=== PATIENT | female | born 1990 | race Caucasian/White ===

== ENCOUNTER 2020-12-05 00:13 | Emergency (ER) | payer BC, OTHER ==
[~2020-12-05] VITALS: Ht 152.4 cm; Wt 51.0 kg
[2020-12-05] MEDS ORDERED: ONDANSETRON 2MG/ML, 2ML ONE (00:44)
[2020-12-05] MEDS ORDERED: GLUCAGON 1 MG ONE (00:44)
[2020-12-05] MEDS ORDERED: ONDANSETRON 2MG/ML, 2ML IVPush ONE (01:00)
[2020-12-05] MEDS ORDERED: GLUCAGON 1 MG IVPush ONE (01:00)
[2020-12-05] MEDS ORDERED: SODIUM CHLORIDE 0.9% 1,000ML IVBOLUS ONE (01:00)
[2020-12-05] MEDS ORDERED: SODIUM CHLORIDE FLUSH 10ML SYR IVF ONE (01:00)
--- NOTE | 2020-12-05 01:00 | NUR ---
pt ambulated to the room. airway intact, good aeration and oxygenation. pt on cr monitor, call light within reach. piv started and 1liter NS to flow. meds given per EMAR, and pts mom at bedside.
--- NOTE | 2020-12-05 01:37 | NUR ---
pt calm awake and oriented x4. pts mom at bedside. iv intact, no swelling or redness noted. infusing ivf 1 liter NS. pt states pain in throat from stuck pill has gone down from a 7 to a 4. taking sips from her drink at this time. good airway, aeration and oxygenation.
--- NOTE | 2020-12-05 01:42 | NUR ---
MD to bedside to eval pt. pt with a new soda can and to drink at least half of it for re evaluation.
[2020-12-05 02:08] VITALS: BP 115/68
--- NOTE | 2020-12-05 02:58 | NUR ---
f/u and d/c instructions given to pt, and she v/u. piv d/c'd and cath intact, pt tolerated well.
== END 2020-12-05 03:10 | disposition home or self-care (01) ==
LOC: ED 02:30
DX: T18.128A Food in esophagus causing other injury, initial encounter (principal); X58.XXXA Exposure to other specified factors, initial encounter; Y93.89 Activity, other specified; Y92.89 Other specified places as the place of occurrence of the external cause; Y99.8 Other external cause status
CPT/HCPCS: 96361; 96374; 96375; 99284; J1610; J2405; J7030